=== PATIENT | male | born 1950 ===

== ENCOUNTER 2018-06-20 15:30 | Observation (INO) | payer SELFPAY | END 2018-06-21 12:50 | disposition home or self-care (01) | LOC: C.ER 15:30 → C.9E 17:39 → C.6T 18:03 | PROVIDERS: ADMIT Internal Medicine | CPT/HCPCS: 36415; 71045; 80048; 80053; 80061; 82550; 82553; 82948; 83036; 83735; 83880; 84100; 84439; 84443; 84484; 85025; 85610; 85730; 93005; 96374; 99285; G0378; J1644; J2270 ==